=== PATIENT | female | born 1995 | race American Indian/Alaskan Native ===

== ENCOUNTER 2020-09-19 22:38 | Emergency (ER) | payer OTHER ==
--- NOTE | 2020-09-20 00:46 | Emergency Department Report ---
ED General Adult HPI - General Chief complaint: Skin/Abscess/Foreign Body Stated complaint: CYST/INNER THIGH Source: patient Mode of arrival: Ambulatory Limitations: No Limitations - History of Present Illness Initial comments: Patient is a 25-year-old -[place] female with no past medical history presents to the ED with complaint of acute onset persistent painful swollen erythematous maculopapular rash with thick purulent discharge on pelvic area for the last 2 weeks, worse in the last 3 days. Patient states that she was initially evaluated [facility] who biopsied the area about 2 weeks ago and subsequently the area got infected and when she went back to the [facility], she was given antibiotics doxycycline which she is currently taking and has had about 5 days course of the antibiotics. Patient states that she is supposed to get antibiotic for 2 weeks. Patient states that in the last 3 days the pain got worse and that the discharge became worse as well. Patient denies fever, chills, nausea, vomiting, dizziness, syncope, numbness and tingling or weakness of lower extremities bilaterally, abdominal pain, cough, traumatic injury or back pain. MD Complaint: Painful swelling erythematous maculopapular rash on pelvic area -: Sudden, week(s) (2) Location: pelvis (Pelvic area) Radiation: non-radiation Severity scale (0 -10): 7 Quality: aching, sharp Consistency: constant Improves with: none Worsens with: movement Associated Symptoms: denies other symptoms, rash (Painful swollen erythematous maculopapular fluctuant rash on pelvic area). denies: confusion, cough, diaphoresis, fever/chills, headaches, loss of appetite, malaise, nausea/vomiting, shortness of breath, syncope, weakness, other Treatments Prior to Arrival: none - Related Data Previous Rx's Medication Instructions Recorded Last Taken Type Ibuprofen [Motrin] 800 mg PO Q8HR PRN #30 tablet 09/20/20 Unknown Rx ED Review of Systems ROS: Stated complaint: CYST/INNER THIGH Other details as noted in HPI Constitutional: denies: chills, fever Eyes: denies: eye pain, eye discharge, vision change ENT: denies: ear pain, throat pain Respiratory: denies: cough, shortness of breath, wheezing Cardiovascular: denies: chest pain, palpitations Endocrine: no symptoms reported Gastrointestinal: denies: abdominal pain, nausea, diarrhea Genitourinary: denies: urgency, dysuria, discharge Musculoskeletal: denies: back pain, joint swelling, arthralgia Skin: rash (Swollen, painful, erythematous maculopapular rash on pelvic area), change in color. denies: lesions Neurological: denies: headache, weakness, paresthesias Psychiatric: denies: anxiety, depression Hematological/Lymphatic: denies: easy bleeding, easy bruising ED Past Medical Hx - Past Medical History Previous Medical History?: No - Surgical History Past Surgical History?: Yes Additional Surgical History: cyst on the inguinal area/ biopsy: benign - Medications Home Medications: Home Medications Medication Instructions Recorded Confirmed Last Taken Type Ibuprofen [Motrin] 800 mg PO Q8HR PRN #30 tablet 09/20/20 Unknown Rx ED Physical Exam - General Limitations: No Limitations General appearance: alert, in no apparent distress - Head Head exam: Present: atraumatic, normocephalic, normal inspection - Eye Eye exam: Present: normal appearance, PERRL, EOMI - ENT ENT exam: Present: normal exam, normal orophraynx, mucous membranes moist, TM's normal bilaterally, normal external ear exam - Neck Neck exam: Present: normal inspection, full ROM - Respiratory Respiratory exam: Present: normal lung sounds bilaterally. Absent: respiratory distress, wheezes, rales, stridor, chest wall tenderness, accessory muscle use, decreased breath sounds, prolonged expiratory, other - Cardiovascular Cardiovascular Exam: Present: regular rate, normal rhythm, normal heart sounds. Absent: systolic murmur, diastolic murmur, rubs, gallop - GI/Abdominal GI/Abdominal exam: Present: soft, normal bowel sounds. Absent: tenderness, guarding, hyperactive bowel sounds, hypoactive bowel sounds, organomegaly - External exam: Present: erythema (Palpable, severely tender, erythematous maculopapular rash with thick purulent discharge on pelvic area), swelling. 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 Absent: tenderness, CVA tenderness (L), muscle spasm, paraspinal tenderness - Neurological Exam Neurological exam: Present: alert, oriented X3, CN II-XII intact, normal gait, reflexes normal - Psychiatric Psychiatric exam: Present: normal affect, normal mood - Skin Skin exam: Present: warm, dry, intact, rash (Painful erythematous maculopapular severely tender rash with thick purulent discharge on pelvic area), erythema ED Course Vital Signs 09/19/20 23:14 Temperature 98.8 F Pulse Rate 84 Respiratory 20 Rate Blood Pressure 123/89 O2 Sat by Pulse 100 Oximetry ED Medical Decision Making - Medical Decision Making This is a 25-year-old -[place] female with no past medical history presents to the ED with complaint of acute onset persistent painful swollen erythematous maculopapular rash with thick purulent discharge on pelvic area for the last 2 weeks, worse in the last 3 days. Patient states that she was initially evaluated by a [facility] who biopsied the area about 2 weeks ago and subsequently the area got infected and when she went back to the [facility], she was given antibiotics doxycycline which she is currently taking and has had about 5 days course of the antibiotics. Patient states that she is supposed to get antibiotic for 2 weeks. Patient states that in the last 3 days the pain got worse and that the discharge became worse as well. In the ED, patient is alert and oriented x3 and is not in any distress. The wound was cleaned with normal saline and dressed appropriately after the draining purulent discharge was cleaned from the area. Patient tolerated the procedure well. Patient was advised to continue taking the previously prescribed antibiotics doxycycline until finished and also to take pain medication as needed. Patient is advised return to the ED immediately if symptoms get worse. Patient was advised to follow-up with her primary care physician in 7 to 10 days for reevaluation. - Differential Diagnosis Cellulitis; folliculitis; cutaneous abscess Critical care attestation.: If time is entered above; I have spent that time in minutes in the direct care of this critically ill patient, excluding procedure time. ED Disposition Clinical Impression: Acute folliculitis, Cellulitis and abscess of other specified site Disposition: DC-01 TO HOME OR SELFCARE Is pt being admited?: No Does the pt Need Aspirin: No Condition: Stable Instructions: Folliculitis, Cellulitis, Adult, [id number], Skin Abscess, [id number] Additional Instructions: Continue taking the previously prescribed antibiotics, doxycycline until finished. Take pain medication as needed with food, drink plenty of fluids and follow-up with your primary care physician in 7 to 10 days for reevaluation. Return to the ED immediately if symptoms get worse. Prescriptions: Ibuprofen [Motrin] 800 mg PO Q8HR PRN #30 tablet PRN Reason: Pain , Severe (7-10) Referrals: [facility] [Provider Group] - 7-10 days Forms: Work/School Release Form(ED) Time of Disposition: 00:49 Print Language: AUSTRIAN
[2020-09-20 01:52] VITALS: BP 122/62
== END 2020-09-20 01:15 | disposition home or self-care (01) ==
LOC: ED 22:38
DX: L73.9 Follicular disorder, unspecified (principal); N73.2 Unspecified parametritis and pelvic cellulitis; Z98.890 Other specified postprocedural states; Z79.1 Long term (current) use of non-steroidal anti-inflammatories (NSAID)
CPT/HCPCS: 99282